=== PATIENT | male | born 1985 | race Caucasian/White ===

== ENCOUNTER 2022-07-01 06:51 | Day surgery (SDC) | payer SELFPAY ==
[2022-06-30 11:58] LABS: BASOPHILS # (AUTO) 0.1 K/uL (0.00-0.22); BASOPHILS % (AUTO) 0.9 % (0.0-2.0); EOSINOPHILS # (AUTO) 0.1 K/uL (0-0.4); EOSINOPHILS % (AUTO) 0.9 % (0.0-4.0); HEMATOCRIT 45.1 % (36-52); LYMPHOCYTES # (AUTO) 1.7 K/uL (2.0-11.5); LYMPHOCYTES % (AUTO) 27.8 % (20.5-51.1); MEAN CORPUSCULAR HEMOGLOBIN 30 pg (27-31); MEAN CORPUSCULAR HGB CONC 33 g/dL (33-37); MEAN CORPUSCULAR VOLUME 90.1 fL (80-94); MONOCYTES # (AUTO) 0.4 K/uL (0.8-1.0); MONOCYTES % (AUTO) 6.7 % (1.7-9.3); NEUTROPHILS # (AUTO) 3.9 K/uL (1.8-7.7); NEUTROPHILS % (AUTO) 63.7 % (42.2-75.2); PLATELET COUNT (AUTO) 337 K/uL (140-450); RED BLOOD CELL COUNT(AUTO) 5.01 MIL/uL (4.20-6.10); RED CELL DISTRIBUTION WIDTH 13.8 % (11.6-13.7); WHITE BLOOD COUNT (AUTO) 6.1 K/uL (4.8-10.8)
[2022-06-30 12:09] LABS: ANION GAP 11.7 (8-16); CARBON DIOXIDE 30.8 mmol/L (21-32); CREATININE 0.7 mg/dL (0.6-1.3); POTASSIUM 4.5 mmol/L (3.5-5.1)
[~2022-07-01] VITALS: Ht 170.2 cm; Wt 78.0 kg
[2022-07-01] MEDS ORDERED: LIDOCAINE 1% 500 MG/50 ML VIAL ONE (09:39)
[2022-07-01] MEDS ORDERED: BUPIVACAINE-MPF 0.25% 30 ML VIAL INJ ONE (09:39)
[2022-07-01] MEDS ORDERED: fentaNYL citrate 0.05 MG/ML - 50mL vial IV ONE (10:00)
[2022-07-01] MEDS ORDERED: ONDANSETRON 4 MG/2 ML VIAL ONE ×2 (10:00→10:26)
[2022-07-01] MEDS ORDERED: PROPOFOL 200 MG/20 ML VIAL IV ONE ×2 (10:00→10:25)
[2022-07-01] MEDS ORDERED: SEVOFLURANE 250 ML BTL INH ONE (10:00)
[2022-07-01] MEDS ORDERED: fentaNYL citrate 0.05 MG/ML VIAL ONE (10:04)
[2022-07-01] MEDS ORDERED: SUCCINYLCHOLINE CHLORIDE 200 MG/10 ML VIAL IVP ONE (10:26)
[2022-07-01] MEDS ORDERED: KETOROLAC 30 MG/ML VIAL ONE (10:26)
[2022-07-01] MEDS ORDERED: LACTATED RINGERS 1,000 ML IV SCH (11:00)
[2022-07-01] MEDS ORDERED: HYDROmorphone 1 MG/ML AMP IVP PRN (11:00)
[2022-07-01] MEDS ORDERED: LABETALOL 20 MG/4 ML VIAL IVP PRN (11:02)
[2022-07-01] MEDS ORDERED: METOCLOPRAMIDE 10 MG/2 ML INJ VIAL IVP PRN (11:02)
[2022-07-01] MEDS ORDERED: hydrALAZINE 20 MG/ML VIAL IVP PRN (11:03)
== END 2022-07-01 12:30 | disposition home or self-care (01) ==
LOC: MDS 06:51 → MMU 07:22 → EDSTATUS 09:30 → MDS 12:30
PROVIDERS: ATTEND Surgery
DX: K60.5 Anorectal fistula (principal); Z20.822 Contact with and (suspected) exposure to COVID-19
CPT/HCPCS: 36415; 46270; 71045; 80048; 85025; 87426; 88304; J0330; J1885; J2001; J2405; J2704; J3010; J3490

== ENCOUNTER 2022-07-08 22:19 | Emergency (ER) | payer SELFPAY ==
[~2022-07-08] VITALS: Ht 170.2 cm; Wt 77.1 kg
[2022-07-08 23:17] VITALS: BP 134/77
[2022-07-08 23:20] VITALS: BP 134/77
--- NOTE | 2022-07-09 00:44 | NUR ---
PT TO BED #9
--- NOTE | 2022-07-09 00:57 | NUR ---
RECEIVED IN BED 9, POST OP FOR RECTAL FISTULA. PT WOKE THIS AM WITH BLEEDING NOTED FROM SITE PMHx: DENIES
[2022-07-09] MEDS ORDERED: ACETAMINOPHEN EXTRA STRENGTH 500 MG TAB PO ONE (01:25)
--- NOTE | 2022-07-09 01:30 | NUR ---
MOIST STERILE DRESSING PLACED TO ANAL AREA, SURGICAL SITE
[2022-07-09] MEDS ORDERED: ACET-10509 PO (02:23)
--- NOTE | 2022-07-09 02:35 | NUR ---
Patient discharged with v/s stable. Written and verbal after care instructions given and explained. Patient verbalized understanding. Ambulatory with steady gait. All questions addressed prior to discharge. Advised to follow up with PMD.
== END 2022-07-09 02:35 | disposition home or self-care (01) ==
LOC: MED 22:19
DX: L76.22 Postprocedural hemorrhage of skin and subcutaneous tissue following other procedure (principal); Z48.01 Encounter for change or removal of surgical wound dressing; Z79.899 Other long term (current) drug therapy; Z98.890 Other specified postprocedural states
CPT/HCPCS: 99282

== ENCOUNTER 2022-12-05 09:29 | Emergency (ER) | payer MEDICAID ==
[~2022-12-05] VITALS: Ht 170.2 cm; Wt 82.6 kg
[~2022-12-05 09:29] MED LIST: ACET-10509 PO
[2022-12-05 09:36] VITALS: BP 127/77
[2022-12-05] MEDS ORDERED: FLONAS NS (10:46)
[2022-12-05] MEDS ORDERED: CETI10SG1 PO (10:46)
[2022-12-05] MEDS ORDERED: IBUP-2213 PO (10:46)
--- NOTE | 2022-12-05 11:15 | NUR ---
Patient discharged with v/s stable. Written and verbal after care instructions given and explained. Patient alert, oriented and verbalized understanding of instructions. Ambulatory with steady gait. All questions addressed prior to discharge. ID band removed. Patient advised to follow up with PMD. Rx of FLONASE, ZYRTEC, MOTRIN given. Patient educated on indication of medication including possible reaction and side effects. Opportunity to ask questions provided and answered.
== END 2022-12-05 11:15 | disposition home or self-care (01) ==
LOC: MED 10:30
DX: R51.9 Headache, unspecified (principal); J30.9 Allergic rhinitis, unspecified; Z79.899 Other long term (current) drug therapy
CPT/HCPCS: 99283

== ENCOUNTER 2023-03-10 09:21 | Emergency (ER) | payer MEDICAID ==
[~2023-03-10] VITALS: Ht 174 cm; Wt 80.4 kg
[~2023-03-10 09:21] MED LIST changes: +CETI10SG1 PO; +FLONAS NS; +IBUP-2213 PO
[2023-03-10 09:38] VITALS: BP 128/75; PULSE 66; RESP 20; TEMP 98; O2SAT 99
[2023-03-10] MEDS ORDERED: ACET-8905 PO (10:40)
== END 2023-03-10 10:43 | disposition home or self-care (01) ==
LOC: MED 09:21
DX: M54.50 Low back pain, unspecified (principal); Z79.899 Other long term (current) drug therapy
CPT/HCPCS: 99283